=== PATIENT | female | born 1960 | race African-American/Black ===

== ENCOUNTER 2016-10-30 11:23 | Emergency (ER) | payer MEDICARE, MEDICAID ==
[~2016-10-30] VITALS: Ht 167.6 cm; Wt 99.6 kg
[2016-10-30 11:35] VITALS: BP 123/85
[2016-10-30] MEDS ORDERED: METF500T4 PO (12:28)
== END 2016-10-30 13:02 | disposition home or self-care (01) ==
LOC: ED 12:56
DX: R10.2 Pelvic and perineal pain (principal); E11.9 Type 2 diabetes mellitus without complications
CPT/HCPCS: 81003; 99283